=== PATIENT | male | born 1980 | race Caucasian/White ===

== ENCOUNTER 2019-12-25 16:49 | Emergency (ER) | payer OTHER ==
[~2019-12-25] VITALS: Ht 167.6 cm; Wt 77.3 kg
[2019-12-25 16:56] VITALS: BP 193/91
[2019-12-25] MEDS ORDERED: rabies vaccine (PCEC)/PF 2.5 unit kit IMVAC ONE (18:20)
[2019-12-25] MEDS ORDERED: LIDOcaine 1% W/epiNEPHrine 1:200,000 10ml vial IJ ONE (18:20)
[2019-12-25] MEDS ORDERED: rabies immune globulin/PF 150 unit/ml inj IMVAC ONE (18:20)
[2019-12-25] MEDS ORDERED: TETanus/Pertussis (Acell)/Diphther VAC/PF (Tdap-Adult) 0.5ml syringe IMVAC ONE (18:20)
[2019-12-25] MEDS ORDERED: morphine 4 MG/ML inj SYRINge IM ONE (18:30)
[2019-12-25] MEDS ORDERED: DOXY100C77 PO (18:32)
[2019-12-25] MEDS ORDERED: CLIN300C3 PO (18:32)
[2019-12-25] MEDS ORDERED: LIDOcaine 1% W/epiNEPHrine 1:100,000 20ml vial IJ STA (19:00)
--- NOTE | 2019-12-25 19:15 | NUR ---
Pt received pain meds and now getting injected by with lidocaine. The MD then wants the patient to have a shower to clean him. He said that would be the best.
[2019-12-25] MEDS ORDERED: LIDOcaine 1% W/epiNEPHrine 1:200,000 10ml vial IJ STA (19:20)
--- NOTE | 2019-12-25 19:29 | NUR ---
PT IS NUMBED AND TOOK A W/C RIDE TO THE SHOWER WITH MYCHAL AND EMT STUDENT. PT IS DOING WELL.
--- NOTE | 2019-12-25 21:37 | NUR ---
ALL WOUNDS INJECTED W/ IMMUNE GLOBULIN. PT TOLERATED WELL. HAD TO STOP ONCE AND PUT COOL COMPRESS ON FOREHEAD TO CALM PT DOWN. ALLOWED NURSES TO CONTINUE. OFFERED WORDS OF ENCOURAGEMENT. PT IS RESTING IN BED WAITING FOR TECH TO COVER WOUNDS.
[2019-12-25] MEDS ORDERED: bacitracin 15gm ointment TP STA (21:42)
[2019-12-25] MEDS ORDERED: ibuprofen tablet 400 MG TABLET PO STA (21:42)
[2019-12-25] MEDS ORDERED: IBUP-1984 PO (21:46)
[2019-12-25] MEDS ORDERED: clindamycin 150mg capsule PO STA (22:02)
[2019-12-25] MEDS ORDERED: DOXYCYCLINE 100MG CAPSULE PO STA (22:02)
== END 2019-12-25 22:29 | disposition home or self-care (01) ==
LOC: ER 16:50
DX: S01.01XA Laceration without foreign body of scalp, initial encounter (principal); S51.811A Laceration without foreign body of right forearm, initial encounter; S21.111A Laceration without foreign body of right front wall of thorax without penetration into thoracic cavity, initial encounter; Z88.0 Allergy status to penicillin; Z79.2 Long term (current) use of antibiotics; Z79.899 Other long term (current) drug therapy; W54.0XXA Bitten by dog, initial encounter; Y93.01 Activity, walking, marching and hiking; Y92.89 Other specified places as the place of occurrence of the external cause; Y99.8 Other external cause status
CPT/HCPCS: 12001; 12034; 71045; 73090; 90375; 90471; 90472; 90675; 96372; 99285; J2270; 90715

== ENCOUNTER 2019-12-27 13:52 | Emergency (ER) | payer MEDICAID, OTHER ==
[~2019-12-27] VITALS: Ht 167.6 cm; Wt 77.2 kg
[~2019-12-27 13:52] MED LIST: CLIN300C3 PO; DOXY100C77 PO; IBUP-1984 PO
[2019-12-27 13:58] VITALS: BP 149/94
[2019-12-27] MEDS ORDERED: rabies vaccine (PCEC)/PF 2.5 unit kit IMVAC ONE (14:45)
[2019-12-27] MEDS ORDERED: DOXYCYCLINE 100MG CAPSULE PO STA (14:46)
[2019-12-27] MEDS ORDERED: clindamycin 150mg capsule PO ONE (14:50)
--- NOTE | 2019-12-27 15:10 | NUR ---
NEW DRESSING PLACE ON RIGHT ARM/HAND
== END 2019-12-27 15:14 | disposition home or self-care (01) ==
LOC: ER 13:54
DX: Z23 Encounter for immunization (principal); F12.90 Cannabis use, unspecified, uncomplicated; Z88.0 Allergy status to penicillin
CPT/HCPCS: 90471; 90675; 99283

== ENCOUNTER 2020-01-08 12:55 | Emergency (ER) | payer MEDICAID, OTHER ==
[~2020-01-08] VITALS: Ht 167.6 cm; Wt 77.9 kg
[~2020-01-08 12:55] MED LIST changes: -CLIN300C3 PO
[2020-01-08 13:16] VITALS: BP 147/79
[2020-01-08] MEDS ORDERED: rabies vaccine (PCEC)/PF 2.5 unit kit IMVAC ONE (13:40)
== END 2020-01-08 15:08 | disposition home or self-care (01) ==
LOC: ER 12:56
DX: S01.01XD Laceration without foreign body of scalp, subsequent encounter (principal); S51.811D Laceration without foreign body of right forearm, subsequent encounter; F12.90 Cannabis use, unspecified, uncomplicated; Z88.0 Allergy status to penicillin; W54.0XXD Bitten by dog, subsequent encounter
CPT/HCPCS: 90471; 90675; 99283